=== PATIENT | male | born 1980 | race Caucasian/White ===

== ENCOUNTER 2018-06-19 13:00 | Day surgery (SDC) | payer OTHER ==
[2018-06-15 16:43] VITALS: BMI 30.1
--- NOTE | 2018-06-19 13:23 | HP ---
Satellite [facility] - Chief Complaint Chief Complaint: left elbow pain - Past Medical History Allergies/Adverse Reactions: Allergies Allergy/AdvReac Type Severity Reaction Status Date / Time Penicillins Allergy Intermediate Rash Verified 06/15/18 16:39 - Current Medications Current Medications: Home Medications Medication Instructions Recorded Hydrocodone/Acetaminophen [[place] 1 each PO Q6H PRN #20 tablet MDD 4 06/19/18 5-325 Tablet] Satellite Physical Exam - Physical Examination General Appearance: Well Nourished, Well Developed, Alert & Oriented x3 ENT: Clear Lung: Normal air movement Heart: Regular rate & rhythm Neurological: Intact (left elbow- + palpable FB, good rom, nvi xrays shows retained FB), Alert, Oriented [facility] Impression/Plan - Impression/Plan Impression: left elbow FB Operative Procedure: left elbow FB excision Date to be Performed: 06/19/18
[2018-06-19 13:34] VITALS: TEMP 98.1
[2018-06-19] MEDS ORDERED: ONDANSETRON 4 MG/2 ML VIAL IVPUSH PRN (13:56)
[2018-06-19] MEDS ORDERED: LACTATED RINGERS SOLUTION 1,000 ML IV SCH (14:00)
[2018-06-19] MEDS ORDERED: PROPOFOL 20 ML ONE (15:52)
[2018-06-19] MEDS ORDERED: MIDAZOLAM HCL 2 MG/2 ML SINGLE DOSE VIAL ONE (15:52)
[2018-06-19] MEDS ORDERED: ceFAZolin SODIUM 1 GM VIAL ONE (15:59)
[2018-06-19] MEDS ORDERED: ceFAZolin SODIUM 1 GM VIAL IVPB ONE (15:59)
--- NOTE | 2018-06-19 16:41 | OP ---
Operative Note - Note: Operative Date: 06/19/18 Pre-Operative Diagnosis: left arm foeign body, metal schrapnel Operation: removal foreign body left arm Post-Operative Diagnosis: Same as Pre-op Surgeon: John Alonzo Anesthesiologist/CLOSET BUILDER: Conor Reed Anesthesia: Local, MAC Specimens Removed: foreign material left arm, metal Estimated Blood Loss (mls): 15 Drains, Volume Out (mls): 0 Blood Volume Replaced (mls): 0 Fluid Volume Replaced (mls): 500 Operative Report Dictated: Yes
[2018-06-19 18:42] VITALS: BP 111/64; PULSE 61
--- NOTE | 2018-06-19 20:28 | OP ---
DATE OF OPERATION: 06/19/2018 PREOPERATIVE DIAGNOSIS: Foreign body, left arm. POSTOPERATIVE DIAGNOSIS: Foreign body, left arm. PROCEDURE: Removal of foreign body, left arm, metal shrapnel. SURGEON: John Nichols MD ASSISTANTS: None. ANESTHESIOLOGIST: . ANESTHESIA: MAC anesthesia with left upper extremity scalene block. DRAINS: None. COMPLICATIONS: None. SPECIMENS: Foreign body, left arm. BLOOD LOSS: 15 mL. BLOOD GIVEN: None. FLUID REPLACEMENT: 500 mL. INDICATIONS: This patient is a 37-year-old male with preoperative diagnosis of a foreign body in his anterior cubital fossa of his left elbow/arm. He is confident it is a metallic piece of a metal chisel that he was working on while at work. He bled a tremendous amount at the time of the injury. The foreign body feels relatively superficial. I believe it nicked the brachial vein. DESCRIPTION OF PROCEDURE: The patient was brought to the operating room, peripheral IV placed, IV sedation given. IV Ancef 1 g was given. Left upper extremity scalene block was performed. MAC anesthesia was induced. The left upper extremity was prepped and draped in sterile fashion. Tourniquet applied. Elevated and exsanguinated with an Esmarch bandage, the tourniquet to 250 mmHg. A transverse incision was marked out within the anterior flexion crease of the left elbow. A number 15 scalpel blade was utilized to cut down through the skin and subcutaneous tissues. Hemostasis was achieved with use of the bipolar cautery. Careful slow dissection was done with a curved iris scissors. There was some acute inflammatory tissue. This was removed. The area was debrided and washed out with 10 mL of sterile saline. Part of this inflammatory tissue was passed off the field. Next, I was able to see an entry wound, dissected down to it and found a piece of metal approximately 4 mm wide and 3 mm thick, 9 mm long. There were 2 other small foreign body material pieces next to those, removed as well and all passed off the field as a specimen. The area was copiously irrigated and washed out with about 150 mL of sterile saline with a 10-mL syringe. I could not see or feel any other abnormal tissue in the area. I could see that the patient had cut the lateral aspect of the brachial vein. This area was cauterized and most of it was intact and I think had already clotted off. The whole of the vein was quite functional. The area was copiously irrigated and washed out more. Again I sat and waited to see if any pressure went through the brachial vein. I did not see that. Therefore the area was copiously irrigated and washed out one more time. The 4-0 undyed Vicryl was used to close the deep dermal layer. Final skin reapproximation was done with a running subcuticular 4-0 Biosyn stitch. The area was then washed and dried, covered with Steri-Strips, 4 x 4 gauze, Webril and Coban. The tourniquet was taken down after a total tourniquet time of 22 minutes. There were no complications during the case. The patient tolerated the procedure well and was brought to the ambulatory recovery room in stable condition. JOHN NICHOLS M.D. [id number]
--- NOTE | 2018-06-21 17:55 | PATH ---
Surgical Pathology Report Patient Name: DANYEL NINA [facility]. Rec. #: [id number] /Age/Gender: 1980 (Age: 37) / M Account: [id number] Location: [facility] SUR[facility] Taken: 06/19/2018 Received: 06/20/2018 Reported: 06/21/2018 Physicians: John Alonzo M.D. Specimen(s) Received FOREIGN BODY LEFT ELBOW Clinical History Foreign body material Final Diagnosis FOREIGN BODY, ELBOW, LEFT, REMOVAL: FOREIGN BODY MATERIAL. MACROSCOPIC DIAGNOSIS. Electronically Signed Izabella Estevez M.D. Gross Description Received fresh labeled "foreign body" is a black, irregular, hard, foreign body material measuring 0.8 x 0.2 x 0.1 cm. No soft tissue identified, for gross only. MLSZ/06/20/2018 sanml/06/20/2018
== END 2018-06-19 18:40 | disposition home or self-care (01) ==
LOC: JASU-SURG 13:00 → EDSTATUS 14:19 → JASU-SURG 18:40
PROVIDERS: ATTEND Orthopaedic Surgery
PROC: 0JCF0ZZ Extirpation of Matter from Left Upper Arm Subcutaneous Tissue and Fascia, Open Approach (ICD-10-PCS; principal; 2018-06-19 14:30)
DX: M79.5 Residual foreign body in soft tissue (principal)
CPT/HCPCS: 76000-TC-FY; 88300-TC